=== PATIENT | female | born 1970 | race Caucasian/White ===

== ENCOUNTER 2020-08-14 08:42 | Day surgery (SDC) | payer OTHER ==
[~2020-08-14] VITALS: Ht 160 cm; Wt 63.5 kg
[~2020-08-14 08:42] MED LIST: BUPROPION HCL150 M2 PO; GLUCOSAMINE HC500 MG PO; L-METHYLFOLATE15 M1 PO; LEVOTHYROXINE100 MCG PO; MULTI VITAMIN1 EACH PO; ZOLOFT50 MG PO
--- NOTE | 2020-08-14 10:19 | NUR ---
08/14/20 Jerry9 Shyla Maxwell 1012- PT ARRIVES TO PACU EASILY AROUSABLE TO VOICE. PT FALLS INSTANTLY BACK TO SLEEP WHEN NOT BEING TALKED TO. RESP EVEN AND UNLABORED. OXYGEN SAT HIGH 90'S TO 100% ON 3L VIA NC.
--- NOTE | 2020-08-14 11:25 | OR ---
[facility] [address], [place] [address] Signed DATE OF OPERATION: 08/14/2020 SURGEON: Charlene Garcia MD PREOPERATIVE DIAGNOSIS: Screening. POSTOPERATIVE DIAGNOSIS: Tortuous left colon. PROCEDURE: Colonoscopy without biopsy. ESTIMATED BLOOD LOSS: None. INDICATIONS: Jennifer is a 50-year-old female asked to see me for an initial screening colonoscopy. She has no lower GI complaints. There is no family history of colon cancer or polyps. In the office, I gave her a pamphlet on colonoscopy and we looked at that together along with the risks including, but not limited to gas bloating, crampy abdominal pain, bleeding, perforation requiring surgery, and missed diagnosis. We also discussed the need for IV conscious sedation. She had expressed understanding and wished to proceed. DESCRIPTION OF PROCEDURE: Jennifer was taken into our endoscopy suite and placed in the left lateral decubitus position. She was given 7 mg of Versed and 150 mcg of fentanyl to cover the case. A digital rectal exam was performed and this was unremarkable. The adult colonoscope was introduced and advanced under direct visualization of camera. Her sigmoid and left colon were quite tortuous. It took extra time and extra sedation and abdominal compression in moving the scope back and forth to get the camera up through the sigmoid and left colon and finally around to hepatic flexure and down into the cecum itself. Her prep was quite excellent. We could easily see the appendiceal orifice and the ileocecal valve. The scope was slowly withdrawn. We found no pathology through the entire colon or rectum. Upon retroflexion of scope, there was no additional pathology noted above the anal canal. After this, the gas was suctioned out and the colonoscope removed. Jennifer tolerated the procedure quite well. RECOMMENDATIONS: Jennifer can follow up in 10 years for repeat colonoscopy. Electronically Signed By: CHARLENE GARCIA MD 08/14/20 1125 PATIENT NAME: JENNIFER PEARSON OPERATIVE REPORT DATE OF : 68 REPORT #: [id number] PHYSICIAN: CHARLENE GARCIA MD PCP: JYOTI TIWARI DO REPORT IS CONFIDENTIAL AND NOT TO BE RELEASED WITHOUT AUTHORIZATION [address] [id number] Signed Charlene Garcia MD ALB/MODL /[id number] cc: MD Tri Calderón MD Arian Kargar, DO Copies: CHARLENE GARCIA MD, PATRICIA J MD KARGAR, ARIAN DO ~ Electronically Signed By: CHARLENE GARCIA MD 08/14/20 1125 PATIENT NAME: JENNIFER PEARSON OPERATIVE REPORT DATE OF : 68 REPORT #: [id number] PHYSICIAN: CHARLENE GARCIA MD PCP: JYOTI TIWARI DO REPORT IS CONFIDENTIAL AND NOT TO BE RELEASED WITHOUT AUTHORIZATION
== END 2020-08-14 12:10 | disposition home or self-care (01) ==
LOC: DS 08:42 → OPS 08:42 → DS 08:48 → OPS 09:45 → DS 09:45 → OPS 12:10
PROVIDERS: ATTEND Colon & Rectal Surgery
PROC: 0DJD8ZZ Inspection of Lower Intestinal Tract, Via Natural or Artificial Opening Endoscopic (ICD-10-PCS; principal; 2020-08-14 09:45)
DX: Z12.11 Encounter for screening for malignant neoplasm of colon (principal); K63.89 Other specified diseases of intestine; Z79.899 Other long term (current) drug therapy
CPT/HCPCS: 99153; G0500; J2250; J3010